=== PATIENT | male | born 1945 | race Hispanic/Latino ===

== ENCOUNTER 2023-02-19 05:50 | Day surgery (SDC) | payer OTHER ==
[2023-02-18 10:12] LABS: BASOPHILS % (AUTO) 0.8 % (0.0-5.0); EOSINOPHILS % (AUTO) 3.5 % (0.0-8.0); HEMATOCRIT 41.1 % (42-54); LYMPHOCYTES % (AUTO) 39.5 % (21.0-51.0); MEAN CORPUSCULAR HEMOGLOBIN 30.8 pg (27.0-33.0); MEAN CORPUSCULAR HGB CONC 33.8 g/dL (32.0-36.0); MEAN CORPUSCULAR VOLUME 90.9 fL (79-99); MONOCYTES % (AUTO) 7.6 % (3.0-13.0); NEUTROPHILS % (AUTO) 48.3 % (40.0-77.0); PLATELET COUNT (AUTO) 142 K/uL (130-400); RED BLOOD CELL COUNT(AUTO) 4.52 MIL/uL (4.50-6.20)
[2023-02-18 10:22] LABS: CREATININE 0.9 mg/dL (0.5-1.5); POTASSIUM 3.8 mmol/L (3.5-5.1)
[2023-02-18 10:45] VITALS: BP 135/62
[2023-02-19] VITALS (12 sets, daily range): BP systolic 118–146; BP diastolic 61–76
[~2023-02-19] VITALS: Ht 162.6 cm; Wt 68.7 kg
[2023-02-19] MEDS ORDERED: CEFAZOLIN SODIUM 2 GM VIAL ONE (06:14)
[2023-02-19] MEDS ORDERED: LACTATED RINGERS 1000ML 1,000 ML IV ONE (06:14)
[2023-02-19] MEDS ORDERED: MIDAZOLAM HCL 1 MG/ML 2ML VIAL ONE (07:31)
[2023-02-19] MEDS ORDERED: FENTANYL CITRATE PF 50 MCG/1 ML 2ML VIAL ONE (07:31)
[2023-02-19] MEDS ORDERED: CEFAZOLIN SODIUM 2 GM VIAL IVPB ONE (07:45)
== END 2023-02-19 09:40 | disposition home or self-care (01) ==
LOC: DAH 05:50
PROVIDERS: ATTEND Neurological Surgery
DX: G56.02 Carpal tunnel syndrome, left upper limb (principal); Z20.822 Contact with and (suspected) exposure to COVID-19; Z86.73 Personal history of transient ischemic attack (TIA), and cerebral infarction without residual deficits
CPT/HCPCS: 80048; 85025; 87426; 36415; 64721; A4663; J7120; J3010; J2250; J0690 ×2; A4215; A4222; A4216; A4223 ×2; A4221